=== PATIENT | female | born 1990 | race Two or more races ===

== ENCOUNTER 2024-11-17 18:40 | Observation (INO) | payer OTHER, SELFPAY ==
[2024-11-17] VITALS (26 sets, daily range): BP systolic 110–125; BP diastolic 58–65; PULSE 98–118; RESP 18; TEMP 37.1; O2SAT 94–100; BMI 33.5
[2024-11-17] MEDS: MEPERIDINE INJ 50 MG/ML VIAL IM (19:38)
[2024-11-17] MEDS: PROMETHAZINE INJ 25 MG/ML VIAL IM (19:38)
[2024-11-17 19:58] LABS: Collection Type, Urine Clean Catch
[2024-11-17 20:00] LABS: Basophils % (Auto) 0 % (0-2.5); Eosinophils # (Auto) 0.1 Thou/mm3 (0.0-0.5); Eosinophils % (Auto) 2 % (0-10); Hematocrit 32.8 % (36.0-46.0); Hemoglobin 11.6 g/dL (12.0-16.0); Immature Granulocytes % (Auto) 1 % (0-0); Immature Granulocytes Auto 0.06 Thou/mm3 (0.00-0.00); Lymphocytes # (Auto) 0.7 Thou/mm3 (1.0-4.8); Lymphocytes % (Auto) 12 % (10-50); Mean Corpuscular HGB Conc 35.4 g/dl (31.0-37.0); Mean Corpuscular Hemoglobin 30.9 pg (25.0-35.0); Mean Corpuscular Volume 87 fL (80-100); Monocytes # (Auto) 0.5 Thou/mm3 (0.0-0.8); Monocytes % (Auto) 10 % (0-12); Neutrophils # (Auto) 4.1 Thou/mm3 (1.8-7.7); Neutrophils % (Auto) 75 % (37-80); Nucleated Red Blood Cell % 0 /100 WBC (0); Platelet Count 215 Thou/mm3 (140-440); Red Blood Count 3.76 Miln/mm3 (4.00-5.20); White Blood Count 5.4 Thou/mm3 (3.6-11.0)
[2024-11-17] MEDS: SODIUM CHLORIDE 0.9% 1000 ML 1,000 ML 125 ML IV (20:02)
[2024-11-17 20:14] LABS: Bilirubin,Urine Negative (Negative); Blood,Urine Negative (Negative); Clarity,Urine Clear (Clear/Hazy); Color,Urine Colorless (Lt Yel-Yel); Culture Indicated,Urine Not Indicated; Glucose, Urine Negative (Negative); Ketones,Urine Negative (Negative); Leukocyte Esterase,Urine Negative (Negative); Nitrite,Urine Negative (Negative); PH,Urine 6.5 (5.0-7.0); Protein,Urine Negative (Neg - Trace); RBC,Urine < 1 /hpf (0-3); Specific Gravity,Urine 1.008 (1.001-1.035); Squamous Epithelial Cell,Urine < 1 /hpf (0-5); Urobilinogen,Urine Negative mg/dL (0.0-1.0); WBC,Urine 1 /hpf (0-5)
[2024-11-17 20:46] LABS: FFN Specimen Descripton Clr Colrless Aqueous; Fetal Fibronectin Negative (Negative)
== END 2024-11-17 20:58 | disposition home or self-care (01) ==
PROVIDERS: Admitting Provider Specialist; PCP Specialist; Visit Provider Specialist
DX: O26.893 Other specified pregnancy related conditions, third trimester (principal); M54.9 Dorsalgia, unspecified; R10.9 Unspecified abdominal pain; Z3A.30 30 weeks gestation of pregnancy
CPT/HCPCS: 36415; 59899; 81001; 82731; 85025; 96372; G0378; J2175; J2550; J7030

== ENCOUNTER 2024-12-01 22:07 | Emergency (ER) | payer OTHER, SELFPAY ==
[2024-12-01 22:08] VITALS: BMI 32.1
[2024-12-01 22:23] VITALS: BP 122/72; PULSE 83; RESP 20; TEMP 36.8; O2SAT 95
--- NOTE | 2024-12-01 22:50 | EDNOTE_ITS ---
ED Skin Abcess FB-RME/HPI General Chief complaint: Skin/Abscess/Foreign Body Stated complaint: RASH ON ABDOMEN, ITCHING ALL OVER Time Seen by Provider: 12/01/24 22:45 Arrival date/time: 12/01/24 22:07 34 year old female present to emergency room with c/o of possible reaction after giving herself insulin. pt is currently 32 week and the same insulin pen in the past without complications. SEVERITY: Symptoms are described as being severe with limitations on activities of daily living CONTEXT: The patient is unable to identify any inciting events. DURATION/TIMING: The symptoms started approximately 1 day ASSOCIATED SYMPTOMS: The patient is unable to identify any other associated symptoms. MODIFYING FACTORS: The patient is unable to identify any alleviating or aggravating symptoms. PERTINENT ROS: no fevers, no cough, no pleuritic pain, no ripping or tearing sensations, denies any lower extremity edema and no unilateral swelling, no chest pain/shortness of breath no nausea,vomiting, diarrhea, no dizziness/headache no rash no loc/syncope episode no abd/back pain no dsyuria,urgency,frequency no vag bleeding REVIEW OF SYSTEMS: See History of Present Illness - with the exception of those mentioned in the history of present illness, all other systems reviewed and reported as negative GENERAL: In general the patient is awake, interactive, in an emergency department gurney. HEAD/EYES/EARS/NOSE/THROAT: normo-cephalic, atraumatic, mucus membranes are moist, anicteric, palpebral conjunctiva is pink, trachea is midline. CARDIOVASCULAR: regular rate and regular rhythm, no murmurs, heart sounds are not distant, strong pulses in all four extremities that are equal and symmetric bilateral upper and lower extremities, normal capillary refill. CHEST/PULMONARY: normal chest rise and fall, good air movement, clear to auscultation bilaterally, normal inspiratory to expiratory ratios without evidence of respiratory distress. NECK: No midline/Paraspinal tenderness, no step off ROM/Strenght intact No Kernig and bruzinski sign. No trauma ABDOMEN: soft, not tender, no masses appreciated BACK: normal range of motion without pain. NEUROLOGICAL: cranio-facial features are symmetric, moves all four extremities equally without obvious limitations or weakness. EXTREMITY: no tenderness to palpation over the long bones or large joints of the bilateral upper and lower extremities, no joint swelling, no joint erythema, no signs of trauma, no unilateral leg swelling and no peripheral edema. SKIN: warm, dry, well-perfused, no jaundice, no rash, no telangiectasias or petechia. PSYCH: calm, cooperative, no evidence of psychosis or agitation Related Data Home Medications ?Medication ?Instructions ?Recorded ?Confirmed insulin NPH isoph U-100 human 100 unit subcut 11/17/24 unit/mL (3 mL) subcutaneous pen (Humulin N NPH U-100 Insulin KwikPen) insulin lispro 100 unit/mL subcut 11/17/24 subcutaneous pen (Humalog KwikPen (U-100) Insulin) vit no.95-ferrous tab PO 11/17/24 11/17/24 fumarate 28 mg-folic acid 800 mcg tablet () Allergies Allergy/AdvReac Type Severity Reaction Status Date / Time No Known Allergies Allergy Verified 11/17/24 18:55 Course Quality Measures none Vital Signs Vital signs: Vital Signs Temperature 98.2 F 12/01/24 22:23 Pulse Rate 83 12/01/24 22:23 Respiratory Rate 20 12/01/24 22:23 Blood Pressure 122/72 12/01/24 22:23 Pulse Oximetry (%) 95 12/01/24 22:23 Oxygen Delivery Method Room Air 12/01/24 22:23 Skin / Abscess / Foreign Body Patient data External records reviewed:: [facility] previous records Clinical information provided by:: patient Social determinants that could affect healthcare access:: none Patient has the following chronic illnesses:: none How is presenting disease/condition affected by chronic disease/condition?: no chronic disease Evaluation data The following diagnostics were reviewed and interpreted by me:: other (specify) (none ) Lab and/or radiology exams considered but not ordered:: none Interpretation Summary: none Medications / Prescriptions Medications or Prescriptions considered but not ordered:: none Medication administrations:: none Consultations Consultation(s) initiated? (list below): No Diagnosis Skin/Abscess Differential Diagnosis: viral exanthem, urticaria, allergic reaction to drug and eczema Most likely diagnosis given after review of the tests above:: hives Admission Indicated Admission indicated?: not indicated Admission Request Was there a request for admission?: No Disposition Plan Disposition Plan: Discharge Discharge Attestation Discharge Attestation: The patient and all family members were given an opportunity to ask questions and understood the discharge instructions. Discharge instructions specifically effects, indications for sooner follow up or return to the emergency department, and the expected course of current diagnosis. Patient condition: Stable Discharge Plan Plan Patient Disposition: HOME (Self Care) Prescriptions/Referrals Prescriptions/Med Rec: No Action insulin lispro [Humalog KwikPen Insulin] 100 unit/mL insulin pen SUBCUT Patient Comments: Inject 12 unit subcutaneously as directed with breakfast and 18 units with dinner. Rx Instructions: 12U w/ breakfast 18U w/ dinner Humulin N NPH Insulin KwikPen 100 unit/mL (3 mL) insulin pen SUBCUT Patient Comments: INJECT 30 UNITS SUBCUTANEOUSLY BEFORE BREAKFAST AND 18 UNITS AT BED TIME PNV cmb#95-ferrous fumarate-FA [] 28 mg iron- 800 mcg tablet PO Patient Comments: TAKE 1 TABLET BY MOUTH ONCE DAILY Problem List Clinical Impression: Urticaria Patient/Caregiver Discharge Instructions Education Materials: ED Hives (Adult) Print Language: Amharic Stand Alone Forms: Paige Award Info., Patient Portal Info Letter
== END 2024-12-01 23:20 | disposition home or self-care (01) ==
LOC: SERX 22:59
PROVIDERS: Emergency Provider Emergency Medicine; PCP Registered Nurse Community Health
DX: O99.713 Diseases of the skin and subcutaneous tissue complicating pregnancy, third trimester (principal); L50.9 Urticaria, unspecified; Z3A.32 32 weeks gestation of pregnancy
CPT/HCPCS: 99281

== ENCOUNTER → 2025-01-11 | Outpatient (CLI) | payer OTHER, SELFPAY ==
[2025-01-11 09:41] LABS: Basophils # (Auto) 0.1 Thou/mm3 (0.0-0.2); Basophils % (Auto) 1 % (0-2.5); Eosinophils # (Auto) 0.4 Thou/mm3 (0.0-0.5); Eosinophils % (Auto) 4 % (0-10); Hematocrit 34.7 % (36.0-46.0); Hemoglobin 12.7 g/dL (12.0-16.0); Immature Granulocytes % (Auto) 1 % (0-0); Immature Granulocytes Auto 0.05 Thou/mm3 (0.00-0.00); Lymphocytes # (Auto) 1.6 Thou/mm3 (1.0-4.8); Lymphocytes % (Auto) 19 % (10-50); Mean Corpuscular HGB Conc 36.6 g/dl (31.0-37.0); Mean Corpuscular Hemoglobin 30.8 pg (25.0-35.0); Mean Corpuscular Volume 84 fL (80-100); Monocytes # (Auto) 0.6 Thou/mm3 (0.0-0.8); Monocytes % (Auto) 7 % (0-12); Neutrophils # (Auto) 5.8 Thou/mm3 (1.8-7.7); Neutrophils % (Auto) 69 % (37-80); Nucleated Red Blood Cell % 0 /100 WBC (0); Platelet Count 234 Thou/mm3 (140-440); RDW Standard Deviation 37.9 fL (36.4-46.3); Red Blood Count 4.13 Miln/mm3 (4.00-5.20); White Blood Count 8.5 Thou/mm3 (3.6-11.0)
[2025-01-11 10:00] LABS: INR 0.9 (0.9-1.3); Partial Thromboplastin Time 26.4 Seconds (22.0-36.0); Prothrombin Time 10.1 Seconds (9.0-12.2)
[2025-01-11 10:11] LABS: Alanine Aminotransferase 9 U/L (10-49); Albumin, Serum 3.9 gm/dL (3.5-5.0); Albumin/Globulin Ratio 1.4 (1.2-2.2); Alkaline Phosphatase 120 U/L (46-116); Anion Gap 9 (7-16); Aspartate Amino Transferase 13 U/L (0-34); BUN/Creatinine Ratio 16 Ratio (12-20); Bilirubin,Total 0.6 mg/dL (0.3-1.2); Blood Urea Nitrogen 8 mg/dL (9-23); Calcium 9.5 mg/dL (8.3-10.6); Calcium (Corrected) 9.6 mg/dL (8.5-10.1); Carbon Dioxide 22.3 mMol/L (20.0-31.0); Chloride 107 mMol/L (98-107); Creatinine (Component) 0.5 mg/dL (0.6-1.3); Globulin 2.8 gm/dL (2.3-3.5); Glucose 88 mg/dL (74-106); Osmolality,Calculated 272 (275-295); Potassium 3.8 mMol/L (3.4-5.1); Sodium 138 mMol/L (136-145); Total Protein 6.7 gm/dL (5.7-8.2); eGFR > 60 See Note
[2025-01-11 10:29] LABS: Syphilis Nonreactive (Nonreactive)
== END | disposition home or self-care (01) ==
PROVIDERS: PCP Registered Nurse Community Health; Referring Provider Specialist; Visit Provider Specialist
DX: Z34.83 Encounter for supervision of other normal pregnancy, third trimester (principal)
CPT/HCPCS: 36415; 80053; 85025; 85610; 85730; 86780; 86850; 86870; 86900; 86901

== ENCOUNTER 2025-01-15 10:37 | Inpatient (IN) | payer OTHER, SELFPAY ==
[2025-01-15] VITALS (31 sets, daily range): BP systolic 104–147; BP diastolic 60–80; PULSE 65–107; RESP 12–20; TEMP 36.3–36.4; O2SAT 97–100; BMI 28.5
[2025-01-15] MEDS: RINGERS LACTATED 1000 ML 1,000 ML 100 ML IV ×3 (11:05→21:16)
--- NOTE | 2025-01-15 11:26 | ESHP_ITS ---
Documentation for date of: 01/15/25 OB Labor/Induct. HPI History of Present Illness History of present illness: H and P dictated on STAT line #9 in [place] [id number] Meds Home Medications and Allergies Home Medications ?Medication ?Instructions ?Recorded ?Confirmed ?Type insulin NPH isoph U-100 human 100 unit subcut 11/17/24 History unit/mL (3 mL) subcutaneous pen (Humulin N NPH U-100 Insulin KwikPen) insulin lispro 100 unit/mL subcut 11/17/24 History subcutaneous pen (Humalog KwikPen (U-100) Insulin) vit no.95-ferrous tab PO 11/17/24 11/17/24 Hi story fumarate 28 mg-folic acid 800 mcg tablet () Allergies Allergy/AdvReac Type Severity Reaction Status Date / Time No Known Allergies Allergy Verified 11/17/24 18:55 OB Exam Physical Exam Vital signs: Pulse BP Pulse Ox 82 131/74 H 100 01/15/25 10:47 01/15/25 10:47 01/15/25 11:25
[2025-01-15 12:01] LABS: Basophils % (Auto) 0 % (0-2.5); Eosinophils # (Auto) 0.3 Thou/mm3 (0.0-0.5); Eosinophils % (Auto) 2 % (0-10); Hematocrit 38.3 % (36.0-46.0); Hemoglobin 13.6 g/dL (12.0-16.0); Immature Granulocytes % (Auto) 1 % (0-0); Immature Granulocytes Auto 0.05 Thou/mm3 (0.00-0.00); Lymphocytes # (Auto) 1.9 Thou/mm3 (1.0-4.8); Lymphocytes % (Auto) 18 % (10-50); Mean Corpuscular HGB Conc 35.5 g/dl (31.0-37.0); Mean Corpuscular Hemoglobin 30.4 pg (25.0-35.0); Mean Corpuscular Volume 86 fL (80-100); Monocytes # (Auto) 0.7 Thou/mm3 (0.0-0.8); Monocytes % (Auto) 7 % (0-12); Neutrophils # (Auto) 7.8 Thou/mm3 (1.8-7.7); Neutrophils % (Auto) 72 % (37-80); Nucleated Red Blood Cell % 0 /100 WBC (0); Platelet Count 252 Thou/mm3 (140-440); RDW Standard Deviation 38.8 fL (36.4-46.3); Red Blood Count 4.48 Miln/mm3 (4.00-5.20); White Blood Count 10.8 Thou/mm3 (3.6-11.0)
[2025-01-15] MEDS: ceFAZolin/D5W 2 GM IV 2 GM/100 ML BAG IV (12:18)
[2025-01-15] MEDS: FAMOTIDINE INJ 10 MG/ML VIAL 2 ML 20 MG IV (12:18)
[2025-01-15] MEDS: CITRIC ACID/SODIUM CITR 15 ML UDC (BICITRA) 30 ML PO (12:18)
[2025-01-15 12:36] LABS: Syphilis Nonreactive (Nonreactive)
--- NOTE | 2025-01-15 12:45 | ESHP_ITS ---
RE: MILLY LR : 1990 DATE OF ADMISSION: 01/11/2025 HISTORY OF PRESENT ILLNESS: This is a 34-year-old 3, para 2-0-0-2 with a due date of 01/21 with intrauterine at 39 weeks on 01/15 who presents for primary delivery. The patient's care was complicated by class B diabetes mellitus. She is well controlled on insulin. The patient plans to have a delivery due to history of a shoulder dystocia with her previous and delivery. She reports a normal movement. She denies any leaking or bleeding. ALLERGIES: NO KNOWN DRUG ALLERGIES. MEDICATIONS: 1. multivitamin 1 tablet p.o. daily. 2. Humulin NPH 30 units before breakfast, 20 units at bedtime. 3. Humalog 12 units with breakfast, 20 units with dinner. SOCIAL HISTORY: She denies any alcohol drug use or smoking. PAST MEDICAL HISTORY: Class B diabetes mellitus. Shoulder dystocia. FAMILY HISTORY: Diabetes. OBSTETRIC HISTORY: 2008, 38 weeks, normal vaginal delivery. An 8 pound 11 ounce male. No complications. 2011, 40-week shoulder dystocia, 8 pound 7 ounce male with no brachial plexus injury. PAST SURGICAL HISTORY: Denies. REVIEW OF SYSTEMS: She denies any chest pain, palpitations, cough, fever, shortness of breath, or lower extremity pain. PHYSICAL EXAMINATION: Vital Signs: Blood pressure 118/66, heart rate 88, respirations 18, temperature 98.2, weight 182 pounds. HEENT: Oropharynx and sclerae are clear. Lungs: Clear to auscultation bilaterally. Heart: Regular rate and rhythm. Abdomen: Gravid term size consistent with estimated weight of 9 pounds. Extremities: Nontender. Skin: No gross rashes or lesions. Neurologic: No focal deficits. ASSESSMENT AND PLAN: Intrauterine at 39 weeks, class B diabetes mellitus, history of prior shoulder dystocia. PLAN: delivery. Informed consent was obtained. The patient has been aware of the risks, complications, alternatives, and benefits of the proposed procedure and she agrees. DT: 15:25:46 TT: 16:08:00 Ref: [id number] - TID: [id number] [facility]
--- NOTE | 2025-01-15 18:22 | PC.NURSE ---
[address] Swenson to report pt AC glucose check 179, stated to order consistent carb diet for pt and call if glucose is above 200
[2025-01-15] MEDS: ONDANSETRON INJ 2 MG/ML INJ 2 ML 4 MG IV (18:32)
[2025-01-15 21:25] LABS: Basophils % (Auto) 0 % (0-2.5); Eosinophils % (Auto) 0 % (0-10); Hematocrit 30.7 % (36.0-46.0); Hemoglobin 10.9 g/dL (12.0-16.0); Immature Granulocytes % (Auto) 1 % (0-0); Immature Granulocytes Auto 0.07 Thou/mm3 (0.00-0.00); Lymphocytes # (Auto) 0.9 Thou/mm3 (1.0-4.8); Lymphocytes % (Auto) 6 % (10-50); Mean Corpuscular HGB Conc 35.5 g/dl (31.0-37.0); Mean Corpuscular Hemoglobin 30.4 pg (25.0-35.0); Mean Corpuscular Volume 86 fL (80-100); Monocytes # (Auto) 0.4 Thou/mm3 (0.0-0.8); Monocytes % (Auto) 3 % (0-12); Neutrophils # (Auto) 13.2 Thou/mm3 (1.8-7.7); Neutrophils % (Auto) 91 % (37-80); Nucleated Red Blood Cell % 0 /100 WBC (0); Platelet Count 226 Thou/mm3 (140-440); RDW Standard Deviation 38.4 fL (36.4-46.3); Red Blood Count 3.59 Miln/mm3 (4.00-5.20); White Blood Count 14.6 Thou/mm3 (3.6-11.0)
[2025-01-16 00:16] VITALS: BP 96/55; PULSE 65; RESP 19; TEMP 36.6; O2SAT 100
[2025-01-16] MEDS: Milk Of Magnesia Susp 30 ML UDC PO (01:04)
[2025-01-16] MEDS: SIMETHICONE 80 MG CHEW PO ×2 (01:04→16:07)
[2025-01-16] MEDS: KETOROLAC INJ 30 MG/ML VIAL IVP (01:04)
[2025-01-16] MEDS: ACETAMINOPHEN IVPB 1,000 MG/100 ML VIAL 250 MG IV (01:04)
[2025-01-16 04:11] VITALS: BP 93/58; PULSE 65; RESP 20; TEMP 36.4; O2SAT 100
[2025-01-16] MEDS: IBUPROFEN TAB 400 MG TABLET 800 MG PO ×2 (07:24→16:07)
[2025-01-16 07:30] VITALS: BP 107/57; PULSE 60; RESP 16; TEMP 36.5; O2SAT 100
--- NOTE | 2025-01-16 08:16 | ESOP_ITS ---
RE: MILLY LR : 1990 DATE OF OPERATION: 01/15/2025 PREOPERATIVE DIAGNOSES: 1. Intrauterine at 39 weeks. 2. Class B diabetes mellitus. 3. History of prior shoulder dystocia. 4. Elects delivery. POSTOPERATIVE DIAGNOSES: 1. Intrauterine at 39 weeks. 2. Class B diabetes mellitus. 3. History of prior shoulder dystocia. 4. Elects delivery. PROCEDURE PERFORMED: Primary low transverse section via Pfannenstiel skin incision. SURGEON: Juan Manuel Swenson DO LANDSCAPE CREW LEADER: HIRAL Nelson ANESTHESIA: Spinal. ANESTHESIOLOGIST: Akira Escobedo CRNA ESTIMATED BLOOD LOSS: 600 mL COMPLICATIONS: None. COUNTS: Correct. PATHOLOGY: None. FINDINGS: A live female vertex presentation, occiput posterior, clear amniotic fluid. Apgars 8 and 9, weight 4210 g. Placenta removed completely intact. DESCRIPTION OF PROCEDURE: After proper informed consent was obtained and the patient was made aware of the risks, complications, alternatives, and benefits of the proposed procedure, she was taken to the operating room where she underwent induction of spinal anesthesia. She was placed in the dorsal supine position with the leftward tilt. She was prepped and draped in usual sterile fashion. A timeout was performed. Pfannenstiel skin incision was made with the scalpel, carried through to the underlying layer of fascia with the Bovie. The fascia was nicked in the midline and the incision was extended bilaterally with the Bovie. The inferior aspect of the fascia incision was grasped with Andrés clamps and elevated. The underlying rectus muscle was then dissected off with the Bovie. The superior aspect of the fascial incision was grasped with Andrés clamps, elevated. The underlying rectus muscle was dissected off with the Bovie. The rectus muscles were in the midline. The peritoneum was identified between 2 Livingston clamps and entered sharply with Metzenbaum scissors. The incision was extended superiorly and inferiorly with good visualization of the bladder. The bladder blade was then inserted. The vesicouterine peritoneum was incised transversely and bladder flap created digitally. The bladder blade was reinserted. The lower uterine segment was incised in transverse fashion with the scalpel. The incision was extended bilaterally digitally. The infant's head was delivered. The mouth and nose were suctioned with bulb suction. Shoulder and body delivered atraumatically. The cords were clamped and cut and the infant sent off to the waiting pediatric staff. Cord blood and gases were sent. The placenta was then removed manually. The uterus was exteriorized and cleared of all clots and debris. The uterus incision was repaired with #1-0 chromic catgut suture in a running locking fashion. The second layer of the same suture was used to imbricate the first layer and obtained excellent hemostasis. The vesicouterine peritoneum was closed with 2-0 chromic catgut suture in a running fashion. The uterus was firm. It was returned to the abdomen. The gutters were cleared of all clots and debris. The peritoneum was closed with 0 chromic suture in a running fashion. The muscle was closed with 0 chromic catgut suture in a running fashion. The fascia was closed with #0 Vicryl beginning at each angle and ending in central in a running fashion. Subcutaneous tissue was irrigated with normal saline solution and found to be hemostatic, closed with 2-0 chromic catgut suture in a running fashion. The skin was closed with 4-0 Monocryl. A Dermabond Prineo dressing was applied. A sterile pressure dressing was applied. She tolerated the procedure well. Counts were correct. I discussed with the patient, nature of her condition, the intraoperative findings and expectation for recovery. All questions answered. DT: 13:28:29 TT: 17:22:00 Ref: [id number] - TID: [id number] MTD
[2025-01-16 11:20] VITALS: BP 101/64; PULSE 66; RESP 16; TEMP 36.5; O2SAT 98
[2025-01-16] MEDS: ACETAMINOPHEN 325 MG TABLET 650 MG PO ×2 (11:22→20:40)
[2025-01-16 16:06] VITALS: BP 101/66; PULSE 78; RESP 20; TEMP 36.6; O2SAT 98
[2025-01-16] MEDS: metFORMIN 500 MG TABLET PO (16:07)
[2025-01-16 20:29] VITALS: BP 102/81; PULSE 85; RESP 16; TEMP 36.8; O2SAT 98
--- NOTE | 2025-01-16 21:15 | ESPR_ITS ---
RE: MILLY LR : 1990 DATE OF SERVICE: 01/16/2025 S: Postop day #1, the patient denies any problem or complaints. O: Vital Signs: Stable. She is afebrile. Lungs: Clear to auscultation bilaterally. Heart: Regular rate and rhythm. Abdomen: Dressing dry and intact. Fundus is firm. Extremities: Nontender. ASSESSMENT: Postop day #1 status post delivery. P: Remove dressing. Discontinue IV. Encourage ambulation, oracle hyperion consultant, metformin 500 mg p.o. b.i.d. Continue ADA diet. Possible discharge home tomorrow. DT: 19:24:16 TT: 20:42:00 Ref: [id number] - TID: [id number] MTDD
[2025-01-17] MEDS: IBUPROFEN TAB 400 MG TABLET 800 MG PO (00:51)
[2025-01-17 04:41] VITALS: BP 100/64; PULSE 85; RESP 18; TEMP 36.3; O2SAT 97
--- NOTE | 2025-01-17 05:02 | ESPR_ITS ---
RE: MILLY LR : 1990 DATE OF SERVICE: 01/17/2025 S: Postop day #2, the patient denies any problem or complaints. She is voiding, ambulating, tolerated regular diet, passing flatus. She denies any excessive vaginal bleeding. She denies any dizziness or lightheadedness. She denies any chest pain, palpitations, shortness of breath, or lower extremity pain. O: Vital Signs: Blood pressure 102/81, heart rate 85, respirations 16, temperature is 98.3, and pulse ox is 98% on room air. Lungs: Clear to auscultation bilaterally. Heart: Regular rate and rhythm. Abdomen: Fundus is firm. Incision clean and intact. Extremities: Nontender. A: Postop day #2, status post delivery. P: Discharge home. Discharge instructions given. Follow up in the office in one week. DT: 04:07:29 TT: 05:00:00 Ref: [id number] - TID: [id number]
[2025-01-17] MEDS: ACETAMINOPHEN 325 MG TABLET 650 MG PO (07:38)
[2025-01-17] MEDS: metFORMIN 500 MG TABLET PO (07:39)
[2025-01-17 08:00] VITALS: BP 114/72; PULSE 74; RESP 18; TEMP 36.8; O2SAT 97
[2025-01-17] MEDS: SIMETHICONE 80 MG CHEW PO (10:10)
== END 2025-01-17 12:30 | disposition home or self-care (01) | DRG 788 ==
LOC: S4SX 10:38 → S4NX 12:29
PROVIDERS: Admitting Provider Specialist; Visit Provider Specialist
PROC: 10D00Z1 Extraction of Products of Conception, Low, Open Approach (ICD-10-PCS; CPT 59514; principal; 2025-01-15 12:30)
DX: O24.32 Unspecified pre-existing diabetes mellitus in childbirth (principal); Z37.0 Single live birth; Z3A.39 39 weeks gestation of pregnancy
CPT/HCPCS: 36415; 85025; 86780; 86850; 86900; 86901; A4649; J0131; J0689; J1100; J1885; J2274; J2371; J2405; J2590; J3490; J7120; A9270; J2270

== ENCOUNTER 2025-06-06 18:57 | Emergency (ER) | payer OTHER, SELFPAY ==
--- NOTE | 2025-06-06 19:06 | EKG_ITS ---
[facility] Test Date: 2025-06-06 Pat Name: MILLY LR Department: Room: - Gender: Female [employer]: : 1990 Requested By: Suresh Gauthier Order Number: [id number] Reading MD: Suresh Gauthier Measurements Intervals Grant Rate: 122 P: 66 KS: 146 QRS: -33 QRSD: 90 T: 30 QT: 297 QTc: 424 Interpretive Statements SINUS TACHYCARDIA LEFT AXIS DEVIATION [QRS AXIS < -30] LOW QRS VOLTAGE IN PRECORDIAL LEADS [QRS DEFLECTION < 1.0 mV IN CHEST LEADS] POSSIBLE ANTERIOR MYOCARDIAL INFARCTION , PROBABLY OLD [30 ms Q WAVE IN V3/V4, OR R < 0.2 mV IN V4] No previous ECG available for comparison /store/S0/[id number]/ecg/[id number].pdf
--- NOTE | 2025-06-06 19:33 | PD.EDCHEST ---
ED Chest Pain RME/HPI General Chief Complaint: Chest Pain Stated Complaint: SOB when laying down, right side chest pain Arrival date/time: 06/06/25 18:57 RME / HPI RME / HPI narrative: Dr. Monreal?s Main ED Evaluation: Related Data Home Medications ?Medication ?Instructions ?Recorded ?Confirmed vit no.95-ferrous 1 tab PO QDAY 11/17/24 01/15/25 fumarate 28 mg-folic acid 800 mcg tablet () Previous Rx's ?Medication ?Instructions ?Recorded ibuprofen 600 mg tablet 600 mg PO Q6H PRN pain #30 tabs 01/16/25 metformin 500 mg tablet 500 mg PO BIDWMEAL #60 tabs 01/16/25 Allergies Allergy/AdvReac Type Severity Reaction Status Date / Time No Known Allergies Allergy Verified 06/06/25 19:02 Review of Systems Review of Systems Systems Reviewed: All systems reviewed, normal except as documented Past Medical History Past Medical History NEUROLOGIC: Negative Neurological Disorders or Seizures CARDIAC: Negative Cardiac Disorders or Congestive Heart Failure RESPIRATORY: Negative Chronic Obstructive Pulmonary Disease (COPD) GASTROINTESTINAL: Negative Gastrointestinal Disorders GENITOURINARY: Negative Genitourinary Disorders or Renal Disease REPRODUCTIVE: Positive Previous Pregnancies MUSCULOSKELETAL: Negative Musculoskeletal Disorders ENDOCRINE: Positive Endocrine Disorders (self) and Diabetes Mellitus Type 2 (self); Negative Diabetes Mellitus Type 1 HEMATOLOGIC: Negative Blood Disorders OTHER HISTORY: Negative Autoimmune Disease, Blood Transfusions, Blood Transfusion Reaction, Anesthesia Reactions, Organ Transplant, MRSA, Clostridium Difficile or Cancer Family History FAMILY HISTORY: Positive Family Cardiac Disorders (HTN mother and father of pt); Negative Family Psychiatric Problems, Family Respiratory Disorders, Family Gastrointestinal Problems, Family Cancer, Family Surgery or Family Anesthesia Reaction Surgical History SURGICAL: Negative Cardiac Surgery, Endocrine Surgery, Ear Surgery, Abdominal Surgery, Nephrectomy, Joint Replacement, Neurologic Surgery, Mastectomy, Vasectomy or Organ Transplant Social History SMOKING STATUS: Never smoker SECOND HAND EXPOSURE: No ED Exam Narrative Physical exam: GENERAL APPEARANCE: alert and oriented x 4, well-developed, well-nourished, no acute distress VITALS: All vitals were reviewed and the pulse ox is % on room air, which is normal according to my interpretation. HEENT: Normocephalic, atraumatic; pupils equal, round, reactive to light; EOMI; mucous membranes pink, moist; oropharynx clear NECK: Supple LUNGS: CTABL; no wheezes, no rales, no rhonchi HEART: Regular rate, regular rhythm; normal S1, S2; no murmurs ABDOMEN: non distended; normal BS; soft, no tenderness, no guarding, no rebound; no masses, no organomegaly, no hernia BACK: no CVA tenderness EXTREMITIES: atraumatic; no edema NEUROLOGIC: awake; alert and oriented x4; cranial nerves II-XII grossly intact; no focal sensory or motor deficits PSYCHIATRIC: appropriate mood and affect SKIN: warm, dry, normal color; no rashes Course Course Course Narrative: CXR is ordered for determining the etiology of chest pain. Quality Measures none Orders Category Date Time Status EKG (ED ONLY) *Do not use* NOW Care 06/06/25 19:06 Active EKG (ED Only) Stat Exams 06/06/25 19:06 Ordered Chest Pain MDM Narrative MDM Narrative:: Scribe Attestation: 06/06/25 - Miley Dominguez am scribing for and in the presence of Dr. Monreal. Patient data External records reviewed:: [facility] previous records (Per chart review, patient was seen here on 01/13/24 for hyperglycemia.) Clinical information provided by:: patient Social determinants that could affect healthcare access:: none Patient has the following chronic illnesses:: DM How is presenting disease/condition affected by chronic disease/condition?: uneffected by Evaluation data The following diagnostics were reviewed and interpreted by me:: lab results, radiology exam(s) and EKG tracing(s) Lab and/or radiology exams considered but not ordered:: none Discharge Plan Prescriptions/Referrals Prescriptions/Med Rec: No Action metformin 500 mg tablet 500 mg PO BIDWMEAL Qty: 60 12RF ibuprofen 600 mg tablet 600 mg PO Q6H PRN (Reason: pain) Qty: 30 0RF PNV cmb#95-ferrous fumarate-FA [] 28 mg iron- 800 mcg tablet 1 tab PO QDAY Patient Comments: TAKE 1 TABLET BY MOUTH ONCE DAILY Patient/Caregiver Discharge Instructions Print Language: Czech
[2025-06-06 19:39] VITALS: BP 131/82; PULSE 120; RESP 20; TEMP 38.1; O2SAT 97
--- NOTE | 2025-06-06 20:41 | XR_ITS ---
Examination: Abdomen sonogram, Limited Date and time of exam: June 06, 2025 2107 hours INDICATIONS: Right upper abdominal pain and nausea of the knee 3 days ago Technique: Real-time lorenz scale transabdominal sonographic images of the upper abdomen obtained. Findings: Normal gallbladder Normal common bile duct 0.4 cm Pancreatic head 2.6 cm Liver 15.5 cm fatty infiltration Normal hepatopedal portal venous Patent IVC IMPRESSION: Normal gallbladder Normal common bile duct Fatty infiltration throughout the liver
--- NOTE | 2025-06-06 20:41 | XR_ITS ---
Examination: PA chest single view TECHNIQUE: Upright PA chest single view Date and time: June 06, 2025, 2056 hours INDICATIONS: Right-sided chest pain today. FINDINGS: Normal heart size Right middle lobe right base pneumonia Small right pleural effusion IMPRESSION: Right middle lobe right base pneumonia
--- NOTE | 2025-06-06 20:42 | PD.EDRME ---
Rapid Medical Screening Exam E Arrival date/time: 06/06/25 18:57 34F with history of 4 months ago presents to ED with several days of RUQ pain that radiates upwards and to back, as well as some N/V. There is also some SOB, but patient states it's from the pain. Pain is worse when lying down. Patient denies URI symptoms. Chief Complaint: Chest Pain Time Seen by Provider: 06/07/25 00:04 Vital signs: Vital Signs Temperature 100.6 F H 06/06/25 19:39 Pulse Rate 120 H 06/06/25 19:39 Respiratory Rate 20 06/06/25 19:39 Blood Pressure 131/82 H 06/06/25 19:39 Pulse Oximetry (%) 97 06/06/25 19:39 Oxygen Delivery Method Room Air 06/06/25 19:39 [facility] Narrative: Dr. Monreal?s Main ED Evaluation:
[2025-06-06 20:47] VITALS: TEMP 38.1
[2025-06-06] MEDS: ACETAMINOPHEN 500 MG TABLET 1000 MG PO (20:47)
[2025-06-06 21:05] LABS: Lactate (Lactic Acid) 1.1 mMol/L (0.4-2.0)
[2025-06-06 21:11] LABS: Basophils # (Auto) 0.1 Thou/mm3 (0.0-0.2); Basophils % (Auto) 0 % (0-2.5); Eosinophils # (Auto) 0.7 Thou/mm3 (0.0-0.5); Eosinophils % (Auto) 5 % (0-10); Hematocrit 37.1 % (36.0-46.0); Hemoglobin 12.8 g/dL (12.0-16.0); Immature Granulocytes Auto 0.05 Thou/mm3 (0.00-0.00); Lymphocytes # (Auto) 1.7 Thou/mm3 (1.0-4.8); Lymphocytes % (Auto) 13 % (10-50); Mean Corpuscular HGB Conc 34.5 g/dl (31.0-37.0); Mean Corpuscular Hemoglobin 29.3 pg (25.0-35.0); Mean Corpuscular Volume 85 fL (80-100); Monocytes # (Auto) 0.8 Thou/mm3 (0.0-0.8); Monocytes % (Auto) 6 % (0-12); Neutrophils # (Auto) 10.4 Thou/mm3 (1.8-7.7); Neutrophils % (Auto) 76 % (37-80); Nucleated Red Blood Cell # 0.00 Thou/mm3 (0.00-0.00); Nucleated Red Blood Cell % 0 /100 WBC (0); Platelet Count 289 Thou/mm3 (140-440); RDW Standard Deviation 38.6 fL (36.4-46.3); Red Blood Count 4.37 Miln/mm3 (4.00-5.20); White Blood Count 13.7 Thou/mm3 (3.6-11.0)
[2025-06-06 21:38] LABS: Alanine Aminotransferase 16 U/L (10-49); Albumin, Serum 4.8 gm/dL (3.5-5.0); Albumin/Globulin Ratio 1.5 (1.2-2.2); Alkaline Phosphatase 141 U/L (46-116); Anion Gap 12 (7-16); Aspartate Amino Transferase 11 U/L (0-34); BUN/Creatinine Ratio 6 Ratio (12-20); Bilirubin,Total 1.2 mg/dL (0.3-1.2); Blood Urea Nitrogen 5 mg/dL (9-23); Calcium 10.2 mg/dL (8.3-10.6); Calcium (Corrected) 10.2 mg/dL (8.5-10.1); Carbon Dioxide 23.8 mMol/L (20.0-31.0); Chloride 100 mMol/L (98-107); Creatinine (Component) 0.8 mg/dL (0.6-1.3); Globulin 3.3 gm/dL (2.3-3.5); Glucose 276 mg/dL (74-106); Osmolality,Calculated 279 (275-295); Potassium 3.8 mMol/L (3.4-5.1); Procalcitonin 0.08 ng/ml (0.0-0.49); Sodium 136 mMol/L (136-145); Total Protein 8.1 gm/dL (5.7-8.2); Troponin I < 0.002 ng/mL (0.0-0.045); eGFR > 60 See Note
[2025-06-06 22:09] LABS: Collection Type, Urine Clean Catch
[2025-06-06 22:18] VITALS: BP 113/75; PULSE 111; RESP 18; TEMP 37.4; O2SAT 97
[2025-06-06 22:20] LABS: HCG Qualitative,Urine Negative
[2025-06-06 22:23] LABS: Amorphous Crystals,Urine Present (Absent); Bilirubin,Urine Negative (Negative); Blood,Urine Negative (Negative); Clarity,Urine Clear (Clear/Hazy); Color,Urine Yellow (Lt Yel-Yel); Glucose, Urine 4+ (Negative); Ketones,Urine 2+ (Negative); Leukocyte Esterase,Urine Negative (Negative); Nitrite,Urine Negative (Negative); PH,Urine 6.0 (5.0-7.0); Protein,Urine 1+ (Neg - Trace); RBC,Urine 2 /hpf (0-3); Specific Gravity,Urine 1.041 (1.001-1.035); Squamous Epithelial Cell,Urine < 1 /hpf (0-5); Urobilinogen,Urine Negative mg/dL (0.0-1.0); WBC,Urine 1 /hpf (0-5)
[2025-06-07 00:02] LABS: Amphetamine/Methamp Scrn,U Negative (Negative); Barbiturate Screen,Urine Negative (Negative); Benzodiazepines Screen,Urine Negative (Negative); Benzoylecgonine Screen, Ur Negative (Negative); Fentanyl Screen,Urine Negative (Negative); Opiate Screen,Urine Negative (Negative); THC Screen,Urine Negative (Negative)
--- NOTE | 2025-06-07 00:45 | PD.EDCHEST ---
ED Chest Pain RME/HPI General Chief Complaint: Chest Pain Stated Complaint: SOB when laying down, right side chest pain Time Seen by Provider: 06/07/25 00:04 Arrival date/time: 06/06/25 18:57 34F with history of DM and 4 months ago presents to ED with several days of RUQ/chest pain that radiates upwards and to back, as well as some N/V. There is also some SOB, but patient states it's from the pain. Pain is worse when lying down. Limitations: no limitations RME / HPI RME / HPI narrative: Dr. Monreal?s Main ED Evaluation: Related Data Home Medications ?Medication ?Instructions ?Recorded ?Confirmed vit no.95-ferrous 1 tab PO QDAY 11/17/24 01/15/25 fumarate 28 mg-folic acid 800 mcg tablet () Previous Rx's ?Medication ?Instructions ?Recorded ibuprofen 600 mg tablet 600 mg PO Q6H PRN pain #30 tabs 01/16/25 metformin 500 mg tablet 500 mg PO BIDWMEAL #60 tabs 01/16/25 amoxicillin 875 mg tablet 875 mg PO TID 5 days #15 tabs 06/07/25 azithromycin 250 mg tablet See Rx Instructions PO .COMPLEX #6 06/07/25 tabs Allergies Allergy/AdvReac Type Severity Reaction Status Date / Time No Known Allergies Allergy Verified 06/06/25 19:02 Review of Systems Review of Systems Systems Reviewed: All systems reviewed, normal except as documented Constitutional Constitutional: Reports system reviewed and no additional complaints, except as documented, Denies fever(s) and Denies headache(s) ENT Ears, Nose, Mouth, and Throat: Denies disequilibrium and Denies headache(s) Cardiovascular Cardiovascular: Reports system reviewed and no additional complaints, except as documented, Reports as per HPI, Reports chest pain and Reports dyspnea Respiratory Respiratory: Reports system reviewed and no additional complaints, except as documented, Reports as per HPI, Denies cough and Reports dyspnea Gastrointestinal Gastrointestinal: Reports system reviewed and no additional complaints, except as documented, Denies abdominal pain, Denies nausea and Denies vomiting Neurologic Neurologic: Reports system reviewed and no additional complaints, except as documented, Denies confusion, Denies disequilibrium and Denies headache(s) Psychiatric Psychiatric: Denies confusion Past Medical History Past Medical History NEUROLOGIC: Negative Neurological Disorders or Seizures CARDIAC: Negative Cardiac Disorders or Congestive Heart Failure RESPIRATORY: Negative Chronic Obstructive Pulmonary Disease (COPD) GASTROINTESTINAL: Negative Gastrointestinal Disorders GENITOURINARY: Negative Genitourinary Disorders or Renal Disease REPRODUCTIVE: Positive Previous Pregnancies MUSCULOSKELETAL: Negative Musculoskeletal Disorders ENDOCRINE: Positive Endocrine Disorders (self) and Diabetes Mellitus Type 2 (self); Negative Diabetes Mellitus Type 1 HEMATOLOGIC: Negative Blood Disorders OTHER HISTORY: Negative Autoimmune Disease, Blood Transfusions, Blood Transfusion Reaction, Anesthesia Reactions, Organ Transplant, MRSA, Clostridium Difficile or Cancer Family History FAMILY HISTORY: Positive Family Cardiac Disorders (HTN mother and father of pt); Negative Family Psychiatric Problems, Family Respiratory Disorders, Family Gastrointestinal Problems, Family Cancer, Family Surgery or Family Anesthesia Reaction Surgical History SURGICAL: Negative Cardiac Surgery, Endocrine Surgery, Ear Surgery, Abdominal Surgery, Nephrectomy, Joint Replacement, Neurologic Surgery, Mastectomy, Vasectomy or Organ Transplant Social History SMOKING STATUS: Never smoker SECOND HAND EXPOSURE: No ED Exam General Limitations: Present no limitations General appearance: Present alert and in no apparent distress Head Head exam: Present atraumatic Eye Eye exam: Present normal appearance, PERRL and EOMI ENT ENT exam: Present normal exam, normal oropharynx and mucous membranes moist Neck Neck exam: Present normal inspection, full ROM and trachea midline Chest Chest inspection: Present normal inspection and symmetric chest wall rise Respiratory Respiratory exam: Present normal lung sounds bilaterally Cardiovascular Cardiovascular exam: Present regular rate, normal rhythm and normal heart sounds Abdominal Exam Abdominal exam: Present soft and normal bowel sounds Extremities Exam Extremities exam: Present normal inspection and full ROM Back Exam Back exam: Present normal inspection and full ROM Neurological Exam Neurological exam: Present alert, oriented X3 and CN II-XII intact Psychiatric Psychiatric exam: Present normal affect and normal mood Skin Skin exam: Present warm, dry, intact and normal color Course Quality Measures none Orders Category Date Time Status Bedside COVID-19 Antigen Test NOW Care 06/06/25 20:42 Active Bedside Influenza A&B Antigen Test NOW Care 06/06/25 20:42 Active EKG (ED ONLY) *Do not use* NOW Care 06/06/25 19:06 Completed EKG (ED Only) Stat Exams 06/06/25 19:06 Draft US gall bladder Stat Exams 06/06/25 20:41 Completed XR chest 1V portable Stat Exams 06/06/25 20:41 Completed Blood Culture (Lab) Stat Lab 06/06/25 20:41 Received CBC Stat Lab 06/06/25 20:54 Completed Comprehensive Metabolic Panel Stat Lab 06/06/25 20:54 Completed D-Dimer Stat Lab 06/07/25 00:40 Completed Drug Screen,Urine Stat Lab 06/06/25 21:41 Completed HCG Qualitative,Urine Stat Lab 06/06/25 21:41 Completed Lactate (Lactic Acid) Stat Lab 06/06/25 20:54 Completed Procalcitonin Stat Lab 06/06/25 20:54 Completed Troponin I Stat Lab 06/06/25 20:54 Completed Urinalysis Stat Lab 06/06/25 21:41 Completed Acetaminophen Tab [Tylenol ES Tab] Med 06/06/25 20:41 Discontinued 1,000 mg PO X1 ONE cefTRIAXone [Rocephin] 1,000 mg Med 06/07/25 01:12 Discontinued Lidocaine 1% 20 ml [Xylocaine 1% 20 ML] 2.1 ml IM X1 Vital Signs Vital signs: Vital Signs Temperature 100.6 F H 06/06/25 19:39 Pulse Rate 120 H 06/06/25 19:39 Respiratory Rate 20 06/06/25 19:39 Blood Pressure 131/82 H 06/06/25 19:39 Pulse Oximetry (%) 97 06/06/25 19:39 Oxygen Delivery Method Room Air 06/06/25 19:39 O2 at 97% on RA and WNLs Chest Pain MDM Narrative MDM Narrative:: 34F with history of DM and 4 months ago presents to ED with several days of RUQ/chest pain that radiates upwards and to back, as well as some N/V. There is also some SOB, but patient states it's from the pain. Pain is worse when lying down. Physical exam reveals minimal RUQ tenderness. Clear lungs. Normal WOB. Patient is mildly febrile, but does not appear toxic. EKG is sinus tach of 122. US normal. CXR reveals R-sided PNA with mild pleural effusion, which is likely responsible for symptoms. Trop normal. D-dimer normal. Mild leukocytosis. Procal/lactate normal. CMP unremarkable except for mild anion gap. Meds and residential substance abuse counselor given. Upon reassessment, patient felt better with meds and HR returned to WNLs. Patient data External records reviewed:: [facility] previous records Clinical information provided by:: patient Social determinants that could affect healthcare access:: none Patient has the following chronic illnesses:: DM How is presenting disease/condition affected by chronic disease/condition?: exacerbated by Evaluation data The following diagnostics were reviewed and interpreted by me:: lab results, radiology exam(s) and EKG tracing(s) Lab and/or radiology exams considered but not ordered:: ordered Interpretation Summary: above Medications / Prescriptions Medications or Prescriptions considered but not ordered:: ordered Medication administrations:: Medication Administration History Discontinued Medications Acetaminophen (Acetaminophen 500 Mg Tablet) 1,000 mg PO X1 ONE Stop: 06/06/25 20:42 Last Admin: 06/06/25 20:47 Dose: 1,000 mg Documented By: Ceftriaxone Sodium 1,000 mg/ (Lidocaine HCl 2.1 ml) 0 mg IM X1 ONE Stop: 06/07/25 01:13 above Consultations Consultation(s) initiated? (list below): No Diagnosis Chest Pain Differential Diagnosis: fracture of rib, pneumothorax, stable angina, unstable angina pectoris, atypical chest pain, st elevation myocardial infarction, costochondritis, chest pain, biliary colic and other (PE, CAP) Most likely diagnosis given after review of the tests above:: CAP Admission Indicated Admission indicated?: not indicated Admission Request Was there a request for admission?: No Disposition Plan Disposition Plan: Discharge Discharge Attestation Discharge Attestation: The patient and all family members were given an opportunity to ask questions and understood the discharge instructions. Discharge instructions specifically effects, indications for sooner follow up or return to the emergency department, and the expected course of current diagnosis. Patient condition: Stable Discharge Plan Plan Patient Disposition: HOME (Self Care) Discharge Disposition comment: Stable Prescriptions/Referrals Prescriptions/Med Rec: New amoxicillin 875 mg tablet 875 mg PO TID 5 Days Qty: 15 0RF azithromycin 250 mg tablet See Rx Instructions .ROUTE .COMPLEX Qty: 6 0RF Rx Instructions: For 250 mg dose pack: take 500 mg today (day 1), then 250 mg for 4 days (days 2-5) No Action metformin 500 mg tablet 500 mg PO BIDWMEAL Qty: 60 12RF ibuprofen 600 mg tablet 600 mg PO Q6H PRN (Reason: pain) Qty: 30 0RF PNV cmb#95-ferrous fumarate-FA [] 28 mg iron- 800 mcg tablet 1 tab PO QDAY Patient Comments: TAKE 1 TABLET BY MOUTH ONCE DAILY Referrals: Suri Little FNP [Primary Care Provider] - In 1 week Problem List Clinical Impression: CAP (community acquired pneumonia) Patient/Caregiver Discharge Instructions Education Materials: ED Pneumonia (Adult) Additional Instructions: Please follow-up with PCP within 24-48 hours and return immediately if symptoms worsen. Ibuprofen/Tylenol can be used simultaneously for greater fever/pain control. Benadryl is good for cough, congestion, and sleep. Print Language: Turkmen Stand Alone Forms: Patient Portal Info Letter PA/BUTTON MACHINE OPERATOR Supervising Physician PA/BUTTON MACHINE OPERATOR Supervising Physician: Dr. Haines
[2025-06-07 00:50] VITALS: BP 112/73; PULSE 90; RESP 18; TEMP 37.1; O2SAT 98
[2025-06-07 01:06] LABS: D-Dimer 480 ng/mL (<600)
[2025-06-07] MEDS: cefTRIAXone 1,000 MG, LIDOCAINE 1% 20 ML 2.1 ML IM (01:22)
[2025-06-07 01:35] VITALS: PULSE 94; RESP 16; O2SAT 98
== END 2025-06-07 01:35 | disposition home or self-care (01) ==
PROVIDERS: Physician Assistant; Emergency Provider Emergency Medicine; PCP Registered Nurse Community Health
DX: J18.9 Pneumonia, unspecified organism (principal); E11.9 Type 2 diabetes mellitus without complications; K76.0 Fatty (change of) liver, not elsewhere classified; R00.0 Tachycardia, unspecified
CPT/HCPCS: 36415; 71045; 76705; 80053; 80307; 81001; 81025; 83605; 84145; 84484; 85025; 85379; 87040; 87400; 87811; 93005; 99283; 99284; J0696; J3490; A9270

== ENCOUNTER → 2025-06-12 | Outpatient (CLI) | payer OTHER, SELFPAY ==
--- NOTE | 2025-06-12 14:14 | XR_ITS ---
Examination: PA lateral chest 2 views TECHNIQUE: Upright PA lateral chest 2 views Date and time: June 12, 2025 at 1421 hours INDICATIONS: Pneumonia one week. FINDINGS: Pneumonia in the right midlung with large right pleural effusion Left lung clear IMPRESSION: Pneumonia right midlung Large right pleural effusion
== END | disposition home or self-care (01) ==
LOC: CDIM 14:06
PROVIDERS: PCP Registered Nurse Community Health
DX: J18.9 Pneumonia, unspecified organism (principal); J90 Pleural effusion, not elsewhere classified
CPT/HCPCS: 71046